=== PATIENT | female | born 1985 | race Caucasian/White ===

== ENCOUNTER 2017-04-23 21:32 | Emergency (ER) | payer OTHER ==
[~2017-04-23] VITALS: Ht 154.9 cm; Wt 60.1 kg
[~2017-04-23 21:32] MED LIST: PRENATAL1 EACH PO; ZANTAC150 M1 PO
[2017-04-23 23:59] LABS: HEMATOCRIT 36.1 % (36.0-46.0); HEMOGLOBIN 12.4 G/DL (11.9-15.5); MCH 30.1 PG (29.0-34.0); MCHC 34.3 G/DL (30.0-36.0); MCV 87.6 FL (83-99); PLATELET COUNT 249 K/uL (156-360); RBC DIS.WIDTH-CV 12.9 % (11.8-14.6); RBC DIS.WIDTH-SD 41.1 % (39-53); RED BLOOD COUNT 4.12 M/uL (3.80-5.20); WHITE BLOOD COUNT 5.5 K/uL (4.1-10.2)
[2017-04-24 00:10] LABS: CHLORIDE 106 mEq/L (99-109); POTASSIUM 3.9 mEq/L (3.7-5.4); SODIUM 140 mEq/L (136-147)
[2017-04-24 00:11] LABS: GLUCOSE 78 mg/dL (70-99)
[2017-04-24 00:15] LABS: CREATININE 0.8 mg/dL (0.6-1.3); GFR ESTIMATE (CALCULATED) > 59 mL/min/
[2017-04-24 00:16] LABS: UREA NITROGEN (BUN) 7 mg/dL (9-23)
[2017-04-24 00:24] LABS: QUANTITATIVE HCG < 4.0 MIU/ML
[2017-04-24 02:02] VITALS: BP 127/72
== END 2017-04-24 02:03 | disposition home or self-care (01) ==
LOC: EME 21:32
PROVIDERS: Physician Assistant
DX: R51 Headache (principal); M54.2 Cervicalgia; M79.602 Pain in left arm; M79.605 Pain in left leg; F17.200 Nicotine dependence, unspecified, uncomplicated
CPT/HCPCS: 70450; 80048; 84702; 85027; 99281; 99285; J1885; J2405; J3010; J7030

== ENCOUNTER 2017-06-28 20:44 | Emergency (ER) | payer OTHER ==
[~2017-06-28] VITALS: Ht 154.9 cm; Wt 58.5 kg
[2017-06-28 21:13] VITALS: BP 133/88
[2017-06-28] MEDS ORDERED: PERCOCET 5/31 TABLET PO (23:23)
== END 2017-06-28 23:44 | disposition home or self-care (01) ==
LOC: EME 20:44
DX: R07.81 Pleurodynia (principal); F17.200 Nicotine dependence, unspecified, uncomplicated
CPT/HCPCS: 71046

== ENCOUNTER 2017-07-12 19:40 | Emergency (ER) | payer OTHER ==
[~2017-07-12] VITALS: Ht 154.9 cm; Wt 57.9 kg
[~2017-07-12 19:40] MED LIST changes: +PERCOCET 5/31 TABLET PO
[2017-07-12] MEDS ORDERED: NAPROSYN375 MG PO (20:44)
[2017-07-12] MEDS ORDERED: CLEOCIN150 MG PO (20:44)
[2017-07-12 20:51] VITALS: BP 146/94
== END 2017-07-12 20:52 | disposition home or self-care (01) ==
LOC: EME 19:40
DX: S02.5XXA Fracture of tooth (traumatic), initial encounter for closed fracture (principal); F17.200 Nicotine dependence, unspecified, uncomplicated; Z88.0 Allergy status to penicillin; Z88.1 Allergy status to other antibiotic agents; Z88.8 Allergy status to other drugs, medicaments and biological substances
CPT/HCPCS: 99281; 99284

== ENCOUNTER 2017-08-05 20:12 | Emergency (ER) | payer OTHER ==
[~2017-08-05] VITALS: Ht 154.9 cm; Wt 55.0 kg
[~2017-08-05 20:12] MED LIST changes: +CLEOCIN150 MG PO; +NAPROSYN375 MG PO
[2017-08-05] MEDS ORDERED: SINGULAIR10 MG PO (21:01)
[2017-08-05] MEDS ORDERED: PERCOCET 5/31 TABLET PO (21:22)
[2017-08-05 22:03] VITALS: BP 140/88
== END 2017-08-05 22:10 | disposition home or self-care (01) ==
LOC: EME 20:12
DX: S92.511A Displaced fracture of proximal phalanx of right lesser toe(s), initial encounter for closed fracture (principal); S90.31XA Contusion of right foot, initial encounter; W01.0XXA Fall on same level from slipping, tripping and stumbling without subsequent striking against object, initial encounter; F17.200 Nicotine dependence, unspecified, uncomplicated
CPT/HCPCS: 73630; 99281; 99284